=== PATIENT | female | born 1980 | race Caucasian/White ===

== ENCOUNTER 2020-11-23 08:42 | Outpatient (CLI) | payer OTHER ==
[2020-11-23 09:07] LABS: BILIRUBIN,URINE NEGATIVE (NEGATIVE); GLUCOSE, URINE (UA) NEGATIVE (NEGATIVE); KETONES,URINE (UA) NEGATIVE (NEGATIVE); LEUKOCYTE ESTERASE, URINE NEGATIVE (NEGATIVE); NITRITE,URINE NEGATIVE (NEGATIVE); OCCULT BLOOD,URINE NEGATIVE (NEGATIVE); PROTEIN,URINE NEGATIVE (NEGATIVE); UROBILINOGEN,URINE 0.2 (NORMAL) E.U./dL (NORMAL)
[2020-11-23 09:16] LABS: BACTERIA,URINE Few /HPF (None Seen); CLARITY,URINE CLEAR (CLEAR); RBC,URINE None Seen /HPF (0-5); SQUAMOUS EPITHELIAL CELL,UR RARE Squamous (<= Few); WBC,URINE 0-3 /HPF (0-5)
[2020-11-23 09:49] VITALS: BP 102/64
--- NOTE | 2020-11-23 13:20 | PROVIDER PROGRESS NOTE ---
- HPI Chief Complaint: Decreased movement (Patient presented due to decreased movement.) Current : Current EDU 03/10/21 Gestation 24 Weeks and 5 Days 2 Para 0 Vital Signs Temperature 98.2 F 11/23/20 09:38 Heart Rate 84 11/23/20 09:38 Respiratory Rate 18 11/23/20 09:38 Blood Pressure 102/64 11/23/20 09:38 O2 Saturation 99 11/23/20 09:38 Temperature 98.2 F 11/23/20 09:38 Heart Rate 84 11/23/20 09:38 Respiratory Rate 18 11/23/20 09:38 Blood Pressure 102/64 11/23/20 09:38 O2 Saturation 99 11/23/20 09:38 40 yo at 24 5/7 weeks with decreased movement. Patient is receiving Care in [place], [place]. Patient works in [employer] for the [employer]. Patient had a small amount of spotting this morning, but it has stopped. Patient denies any urinary symptoms. Patient felt regular movement for the past 2 weeks, but not this morning. Patient feeling good movement as soon as belts were placed. movement heard on monitor. O- Chest: clear to auscultation. Good breath sounds in all mcdonald. Heart: RRR without murmur or gallop. Abdomen: Soft, non-tender to palpation, gravid and fundus is appropriate for gestational age. Extremities: No edema, no calf tenderness. NST: FHT 140 with moderate variability and accelerations, no contractions. UA is without signs of infection. A-IUP 24 5/7 Decreased movement resolved. P-Keep her routine appointment at her OB office. - Procedures NST Procedure: NST Procedure Start Date 11/23/20 Start Time 09:00 Stop Time 09:20 Vibroacoustic Stimulation Used No
--- NOTE | 2020-11-23 13:28 | PROCEDURE REPORT ---
- HPI Current EDU 03/10/21 Gestation 24 Weeks and 5 Days 2 Para 0 Vital Signs Temperature 98.2 F 11/23/20 09:38 Heart Rate 84 11/23/20 09:38 Respiratory Rate 18 11/23/20 09:38 Blood Pressure 102/64 11/23/20 09:38 O2 Saturation 99 11/23/20 09:38 Temperature 98.2 F 11/23/20 09:38 Heart Rate 84 11/23/20 09:38 Respiratory Rate 18 11/23/20 09:38 Blood Pressure 102/64 11/23/20 09:38 O2 Saturation 99 11/23/20 09:38 - NST Procedure NST Procedure Start Date 11/23/20 Start Time 09:00 Stop Time 09:20 Vibroacoustic Stimulation Used No 40 yo at 24 5/7 with decreased movement. NST: FHT baseline of 140's with moderate variability and acceleration of 10X10. Reactive NST and Category I strip.
== END 2020-11-23 11:15 | disposition home or self-care (01) ==
LOC: WFO 08:42 → FBP 08:50 → WFO 11:15
PROVIDERS: ATTEND Obstetrics & Gynecology
DX: O36.8130 Decreased fetal movements, third trimester, not applicable or unspecified (principal); Z3A.24 24 weeks gestation of pregnancy
CPT/HCPCS: 59025; 81001; 87086; 99213; 99214

== ENCOUNTER 2022-02-17 19:57 | Emergency (ER) | payer OTHER ==
[2022-02-17 20:27] VITALS: BP 121/82
[2022-02-17] MEDS ORDERED: AMOX/CLAV 875 MG/125 MG TABLET PO STA (21:08)
--- NOTE | 2022-02-17 21:23 | ED Physician Documentation ---
PD HPI HEENT - Stated complaint Stated Complaint: SINUS PX - Chief complaint Chief Complaint: Heent - History obtained from History obtained from: Patient - Additional information Additional information: Patient is a 41-year-old female presenting for evaluation of head congestion for 8 days. She reports having significant nasal congestion and feeling bilateral maxillary sinus congestion for the past 8 days with no improvement with ribi-hli-mcttjmp treatments. She has tried Mucinex, sinus rinses,Cold medication, Tylenol without any improvement. She reports having green nasal discharge.She denies sick contacts, fever, chest pain, difficulty breathing.Home COVID test has been negative. 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 - Present Medications Home Medications: Ambulatory Orders Medication Instructions Recorded Confirmed Amox/Clav 875/125 [Augmentin] 1 each PO Q12H #20 tablet 02/17/22 - Allergies Allergies/Adverse Reactions: Allergies Allergy/AdvReac Type Severity Reaction Status Date / Time No Known Drug Allergies Allergy Verified 02/17/22 20:26 - Social History Does the pt smoke?: No Smoking Status: Never smoker Does the pt drink ETOH?: No Does the pt have substance abuse?: No - Immunizations Immunizations are current?: Yes PD ED PE NORMAL - General General: Alert and oriented X 3, No acute distress, Well developed/nourished - HEENT HEENT: Atraumatic, Moist mucous membranes, Pharynx benign, Other (Tenderness over bilateral maxillary sinuses, no erythema or visible swelling) - Neck Neck: Supple, no meningeal sign - Cardiac Cardiac: RRR, No murmur - Respiratory Respiratory: No respiratory distress, Clear bilaterally - Derm Derm: Warm and dry - Neuro Neuro: Normal speech Results - Vitals Vitals: Vital Signs - 24 hr 02/17/22 20:23 Temperature 36.9 C Heart Rate 91 Respiratory 16 Rate Blood Pressure 121/82 H O2 Saturation 99 Oxygen O2 Source Room air PD MEDICAL DECISION MAKING - ED course ED course: Patient presenting for sinus Congestion, headache for 8 days. No red flag signs or symptoms in regards to her headache. She has taken home COVID test which are negative.Patient has tried multiple fsun-xpo-cunnjse medications without any improvement. Given duration of symptoms, discussed Trial of antibiotics which she is agreeable to. Patient has otherwise stable vital signs and clear lung sounds. She appears well-hydrated. No signs of facial cellulitis. Discussed concerning symptoms to return for. Departure - Departure Disposition: Home, Self Care Clinical Impression: Sinusitis Condition: Stable Instructions: ED Sinusitis Abx Tx Prescriptions: Amox/Clav 875/125 [Augmentin] 1 each PO Q12H #20 tablet Comments: As we discussed most sinus infections are caused by viruses. However given the duration of your symptoms you have elected to a trial of antibiotics. I sent the prescription to [facility] in [place].Please make sure to complete the course of antibiotics. If you have any new or worsening symptoms consider return to the ER or walk-in clinic for reevaluation. Discharge Date/Time: 02/17/22 21:47
== END 2022-02-17 21:47 | disposition home or self-care (01) ==
LOC: ED 19:57
DX: J32.9 Chronic sinusitis, unspecified (principal)
CPT/HCPCS: 99282; 99283; A9270

== ENCOUNTER 2022-02-19 11:34 | Emergency (ER) | payer OTHER ==
[2022-02-19 11:45] VITALS: BP 124/79
--- NOTE | 2022-02-19 12:20 | ED Physician Documentation ---
PD HPI URI - Stated complaint Stated Complaint: CONJESTION/COUGH - Chief complaint Chief Complaint: Heent - History obtained from History obtained from: Patient - History of Present Illness Timing - onset: How many days ago (10) Timing duration: Days (10) Timing details: Gradual onset Associated symptoms: Nasal congestion (green colored and thick from left nare mainly.), Sinus pain, Swollen nodes. No: Fever, Chills, Sore throat, Dry cough, NVD Contributing factors: No: Sick contact, Travel, Immunocompromised Similar symptoms before: Diagnosis (prior sinus infections.) Recently seen: Not recently seen Review of Systems Constitutional: denies: Fever, Chills Eyes: denies: Decreased vision Nose: reports: Rhinorrhea / runny nose, Congestion, Sinus pressure / pain Throat: denies: Sore throat Cardiac: denies: Chest pain / pressure Respiratory: denies: Cough GI: denies: Abdominal Pain, Nausea, Vomiting, Diarrhea Skin: denies: Rash, Lesions PD PAST MEDICAL HISTORY - Past Medical History Past Medical History: Yes Cardiovascular: None Respiratory: None Endocrine/Autoimmune: None - Past Surgical History 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 - Present Medications Home Medications: Ambulatory Orders Medication Instructions Recorded Confirmed Amox/Clav 875/125 [Augmentin] 1 each PO Q12H #20 tablet 02/17/22 Cetirizine [ZyrTEC] 10 mg PO BID #15 tablet 02/19/22 Fluticasone Propionate 2 spr NS BID 30 Days #1 ml 02/19/22 HYDROcod/ACETAM 5/325 [[place] 5/325] 1 ea PO Q6H PRN #12 tablet 02/19/22 SUMAtriptan [Imitrex] 25 mg PO ONCE PRN #9 tablet 02/19/22 dexAMETHasone [Decadron] 4 mg PO DAILY #5 tablet 02/19/22 - Allergies Allergies/Adverse Reactions: Allergies Allergy/AdvReac Type Severity Reaction Status Date / Time No Known Drug Allergies Allergy Verified 02/19/22 11:45 - Social History Does the pt smoke?: No Smoking Status: Never smoker Does the pt drink ETOH?: No Does the pt have substance abuse?: No - Immunizations Immunizations are current?: Yes PD ED PE NORMAL - Vitals Vital signs reviewed: Yes - General General: Alert and oriented X 3, No acute distress, Well developed/nourished - HEENT HEENT: Ears normal, Moist mucous membranes, Pharynx benign - Neck Neck: Supple, no meningeal sign, Other (left anterior adenopathy. ) - Cardiac Cardiac: RRR, No murmur - Respiratory Respiratory: Clear bilaterally - Abdomen Abdomen: Soft, Non tender - Derm Derm: Normal color, Warm and dry, No rash - Neuro Neuro: Alert and oriented X 3, No motor deficit, Normal speech Results - Vitals Vitals: Oxygen O2 Source Room air - Labs Labs: Laboratory Tests 02/19/22 12:10 Nasal Adenovirus (PCR) NOT DETECTED Nasal B. parapertussis DNA (PCR) NOT DETECTED Nasal Coronavir 229E PCR NOT DETECTED Nasal Coronavir HKU1 PCR NOT DETECTED Nasal Coronavir NL63 PCR NOT DETECTED Nasal Coronavir OC43 PCR NOT DETECTED Nasal Enterovir/Rhinovir PCR DETECTED A Nasal Influenza B PCR NOT DETECTED Nasal Influenza A PCR NOT DETECTED Nasal Parainfluen 1 PCR NOT DETECTED Nasal Parainfluen 2 PCR NOT DETECTED Nasal Parainfluen 3 PCR DETECTED A Nasal Parainfluen 4 PCR NOT DETECTED Nasal RSV (PCR) NOT DETECTED Nasal B.pertussis DNA PCR NOT DETECTED Nasal C.pneumoniae (PCR) NOT DETECTED Dano Human Metapneumo PCR NOT DETECTED Nasal M.pneumoniae (PCR) NOT DETECTED Nasal SARS-CoV-2 (PCR) NOT DETECTED Departure - Departure Disposition: 01 Home, Self Care Clinical Impression: Sinusitis, acute Qualifiers: Sinusitis location: maxillary Recurrence: recurrent Qualified Code(s): J01.01 - Acute recurrent maxillary sinusitis Condition: Stable Record reviewed to determine appropriate education?: Yes Instructions: ED Sinusitis Abx Tx Follow-Up: MACO MIRZA MD [Primary Care Provider] - Prescriptions: dexAMETHasone [Decadron] 4 mg PO DAILY #5 tablet Fluticasone Propionate 2 spr NS BID 30 Days #1 ml SUMAtriptan [Imitrex] 25 mg PO ONCE PRN #9 tablet PRN Reason: Migraine HYDROcod/ACETAM 5/325 [[place] 5/325] 1 ea PO Q6H PRN #12 tablet PRN Reason: Pain Cetirizine [ZyrTEC] 10 mg PO BID #15 tablet Comments: I would continue with your Augmentin antibiotic as its only been a day and a half. If this has a bacterial component, it would not really have had time to work well yet. Continue with the cleansing of the nasal passage as you have been doing. We can add a antihistamine to help with some of the congestion. We can add a steroid type medicine for inflammation, use the steroid nasal spray twice daily. I wrote a prescription to refill your sumatriptan to use for your headaches. Add Tylenol every 4-6 hours if needed for pain. Hydrocodone if needed for worse pain in the short-term. I wrote a work note for you for the next 3 to 5 days. I sent your prescriptions to [facility] pharmacy. My narcotic instructions I am prescribing a short course of narcotic pain medication for you. These are potentially dangerous and addictive medications that should be used carefully. These medications may constipate you. Take an ndte-cnw-[id number] stool softener such as docusate twice daily with plenty of water while taking these medications. If you go 24 hours without a bowel movement, take eaej-yms-ddqasjt MiraLAX, per package instructions. Do not drink or drive while taking these medications. If you received narcotic or sedating medications while in the emergency department do not drive for 24 hours. Store this medication in a safe, secure place and out of reach of children. It is a violation of federal law to give or sell this medication to another person or to use in a manner other than prescribed. The ED will not refill narcotic prescriptions, including prescriptions lost or stolen. You can dispose of unwanted medications at the [facility]'s office or at several pharmacies such as [facility]. Forms: Activity restrictions Discharge Date/Time: 02/19/22 12:53
[2022-02-19] MEDS ORDERED: CHERRY SYRUP 10 ML UDC PO ONE (12:38)
[2022-02-19] MEDS ORDERED: SUMAtriptan 25 MG TABLET PO STA (12:38)
[2022-02-19] MEDS ORDERED: DEXAMETHASONE 10 MG/ML VIAL PO STA (12:38)
[2022-02-19] MEDS ORDERED: ACETAMINOPHEN 325 MG TABLET PO STA (12:40)
[2022-02-19 13:13] LABS: CORONAVIRUS 229E-RESP PCR NOT DETECTED; CORONAVIRUS HKU1-RESP PCR NOT DETECTED; CORONAVIRUS NL63-RESP PCR NOT DETECTED
[2022-02-19 13:14] LABS: B. PARAPERTUSSIS- RESP PCR PAN NOT DETECTED; B. PERTUSSIS- RESP PCR PANEL NOT DETECTED; C. PNEUMONIAE- RESP PCR PANEL NOT DETECTED; CORONAVIRUS OC43-RESP PCR NOT DETECTED; HUMAN METAPNEUMOVIRUS NOT DETECTED; INFLUENZA A- RESP PCR PANEL NOT DETECTED; INFLUENZA B - RESP PCR PANEL NOT DETECTED; M. PNEUMONIAE- RESP PCR PANEL NOT DETECTED; PARAINFLUENZA VIRUS 1 NOT DETECTED; PARAINFLUENZA VIRUS 2 NOT DETECTED; PARAINFLUENZA VIRUS 3 DETECTED; PARAINFLUENZA VIRUS 4 NOT DETECTED; RHINOVIRUS/ENTEROVIRUS DETECTED; RSV- RESP PCR PANEL NOT DETECTED; SARS-CoV-2 -RESP PCR PANEL NOT DETECTED
== END 2022-02-19 12:53 | disposition home or self-care (01) ==
LOC: ED 11:34
DX: J01.01 Acute recurrent maxillary sinusitis (principal); Z20.822 Contact with and (suspected) exposure to COVID-19
CPT/HCPCS: 87633; 99282; 99284; A9270

== ENCOUNTER 2022-03-23 13:22 | Outpatient (CLI) | payer OTHER ==
--- NOTE | 2022-03-23 18:20 | MRI Report ---
PROCEDURE: MRI lumbar spine without contrast INDICATIONS: LOW BACK PAIN TECHNIQUE: Noncontrast sagittal T1 spin echo and T2 fast echo, sagittal STIR, axial T1 and T2 fast spin echo thr ough the lumbar spine. In cases with scoliosis, additional coronal T2 fast spin echo may be performe d. COMPARISON: None. FINDINGS: Image quality: Excellent. Alignment and Curvature: There is normal bony alignment. Bone Marrow: Marrow is of normal overall signal. No acute vertebral body compression fractures. Spinal Cord: Conus medullaris terminates at the 1 level. Visualized cord demonstrates normal signal and size. Paraspinous Soft Tissues: No paravertebral masses. T12-L1: Normal in appearance. L1-L2: Normal in appearance. L2-L3: Normal in appearance. L3-L4: Normal in appearance. L4-L5: Mild disc desiccation present. Mild circumferential disc bulge without central or foraminal stenosis L5-S1: Normal in appearance. IMPRESSION: Mild degenerative changes without central or foraminal stenosis Reviewed by: Justin King MD on 03/23/2022 5:19 PM [place] Approved by: Justin King MD on 03/23/2022 5:19 PM [place] Station ID: [id number]
== END 2022-03-23 13:23 | disposition home or self-care (01) ==
LOC: DI 13:22
DX: M51.36 Other intervertebral disc degeneration, lumbar region (principal)

== ENCOUNTER 2022-04-12 14:16 | Outpatient (CLI) | payer OTHER ==
--- NOTE | 2022-04-12 16:08 | MRI Report ---
PROCEDURE: CERVICAL SPINE WO INDICATIONS: CERVICAL RADICULOPATHY TECHNIQUE: Noncontrast sagittal T1 spin echo and T2 fast spin echo, sagittal STIR, foraminal oblique sagittal T2 fast spin echo, and axial gradient echo or T2 fast spin echo through the cervical spine. COMPARISON: None. FINDINGS: Image quality: Excellent. Alignment and Curvature: There is normal bony alignment. Bone Marrow: Marrow demonstrates normal overall signal. Spinal Cord: Visualized spinal cord has normal size and signal. No cerebellar tonsillar herniation. Regional Soft Tissues: Prevertebral and paraspinous soft tissues normal. C2-C3: No spinal canal or neural foraminal stenosis. C3-C4: No spinal canal or neural foraminal stenosis. C4-C5: No spinal canal or neural foraminal stenosis. C5-C6: Moderate bilateral neural foraminal narrowing due to facet and uncovertebral hypertrophy. Mil d spinal canal stenosis due to posterior disc osteophyte complex. C6-C7: No spinal canal or neural foraminal stenosis. C7-T1: Final canal or neural foraminal stenosis. IMPRESSION: Moderate bilateral neural foraminal narrowing at C5-C6. Correlate for any C6 radicular symptoms. Reviewed by: Iftikhar Serna MD on 04/12/2022 4:07 PM PST Approved by: Iftikhar Serna MD on 04/12/2022 4:07 PM PST Station ID: [id number]
== END 2022-04-12 14:17 | disposition home or self-care (01) ==
LOC: DI 14:16
PROVIDERS: ATTEND General Practice
DX: M47.812 Spondylosis without myelopathy or radiculopathy, cervical region (principal)

== ENCOUNTER 2022-06-22 13:02 | Outpatient (CLI) | payer OTHER ==
--- NOTE | 2022-06-22 13:40 | SLEEP CARE CONSULTATION ---
Information from patient questionnaire entered by Latha Prasad. I have reviewed and concur with the information entered by Latha Prasad. This document represents the service I personally performed and the decisions made by me, Merle Morin ARNP. History of Present Illness Service Date and Time: 06/22/2022 1302 Reason for Visit: New patient Chief Complaint: reports: Unrefreshed sleep, Snoring, Excessive daytime sleepiness, Fatigue, Frequent awakenings at night Date of Onset: 2YRS Usual bedtime: 0830PM Time it takes to fall asleep: 1HR, sometimes longer Snores at night: Yes Observed to quit breathing while asleep: No Sleeps alone due to snoring: Yes Number of times waking at night: 3 Reasons for waking at night: reports: Snoring, Bathroom. denies: Choking, Gasping for air Toss, Turn, or Twitch while sleeping: Yes Recalls having dreams: No Usually gets out of bed at: 5AM Feels refreshed in the morning: No Morning headache: Yes (3-4 days a week; may resolve on own or with TYLENOL) Sleepy or fatigued during the day: Yes Ever fallen asleep while driving: No Takes day naps: Yes (on weekends when her daughter naps) Dreams during day naps: No Prior sleep studies: No Additional HPI information: I had the pleasure of seeing SOHAN ALEXANDRA today regarding the possibility of her having a sleep disorder. Her current complaints are unrefreshed sleep, snoring, excessive daytime sleepiness, fatigue and frequent night awakenings. She was told that she is a loud snorer. She says she has a lauren on her phone that tells her she is sometimes at severe risk of sleep apnea. She does not normally wake up feeling rested and wakes up with "bad headaches". She has a history of migraines. She states she wakes up 2-3 times a night but does have a 15 month old child who gets her up at night. She states she is engaged to her fianc has sleep apnea. He has been encouraging her to get a sleep study because of her loud snoring. She states her mother does have sleep apnea and uses a Pap machine. She is going on terminal leave soon from the [employer] and will be moving out of the area. She is trying to take care of her health issues before she is fully from her position in the . 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 Patient is Single and lives in . Have you smoked in the past 12 months: No Years of smokin Quit date: 2020 Alcohol use: No Caffeine use: Yes Caffeine amount and frequency: 2CUPS DAILY Family History Family history of sleep disordered breathing: Yes Family Hx Sleep Apnea: Mother: Snoring, Sleep apnea - Treated, Sibling: Snoring, Grandparent: Snoring Allergies and Home Medications Known drug allergies: No Drug allergies reviewed: Yes Home medication list reviewed: Yes Allergy and home medication list: Allergies No Known Drug Allergies Allergy (Verified 06/21/22 13:02) Medications: Levothyroxine 137 mcg daily, with double dose on Saturday MVT Zyrtec (off brand) Review of Systems Weight gain over past 5 years: 35 Cardiovascular: denies: high blood pressure Respiratory: denies: shortness of breath Gastrointestinal: reports: nausea. denies: heartburn Neurological: reports: headaches. denies: head trauma Psychiatric: reports: anxiety, depression, claustrophobia. denies: Attention Deficit Hyperactivity, mood disorder Ear/Nose/Throat: reports: nasal congestion, sinus problems, nose bleeds, dry mouth/throat, hoarseness, tonsillectomy, wisdom teeth removed Endocrine: reports: sluggishness, too hot or cold, increased appetite Immunologic: reports: sneezing Physical Exam Vital signs obtained and entered by: LATHA Jimeenz MA Blood Pressure: 108/60 (LEFT ARM) Cuff size: regular Heart Rate: 64 O2 Saturation: 98 Height: 5 ft 3 in Weight: 200 lb 6.4 oz Body Mass Index: 35.4 BMI Classification: Obese Neck circumference: 16.5 Mouth and throat: narrow oropharynx Soft palate: long Hard palate: normal Uvula: normal Uvula visualization: 25% Mallampati Class III Tongue: enlarged in size with teeth fam on lateral edges Tonsils: absent bilaterally Neck: normal w/o lymphadenopathy or thyromegaly Heart: regular rate and rhythm Lungs: clear bilaterally Impression and Plan 1. Suspected Obstructive Sleep Apnea-Hypopnea Syndrome, as suggested by a history of loud and irregular snoring, morning headache, frequent awakening during the night, unrefreshed sleep, cognitive impairment, and excessive daytime sleepiness. Narrow oropharynx and obesity are common predisposing factors for obstructive sleep apnea-hypopnea syndrome. I recommend proceeding to polysomnography to confirm the diagnosis and to assess severity. If the patient has significant sleep disordered breathing, a manual CPAP titration study will also be performed to find the optimal treatment pressure. I informed the patient of what the sleep studies involve and after some discussion, obtained agreement to proceed. The pathophysiology of obstructive sleep apnea-hypopnea syndrome was discussed with the patient and health risks of cardiovascular and cerebrov ascular disease if not treated. Risks of drowsy driving discussed in detail and patient advised to avoid long distance driving and to pot puller at the first sign of drowsiness. Patient agreed to plan. * Schedule polysomnography * Avoid long distance driving or driving when feeling sleepy. * Avoid alcohol, sedative and muscle relaxant around bedtime. * Attempt to lose weight. * Review instructions provided by trained office staff on how to prepare for the sleep study. * Return for follow-up after sleep study completed. Counseling Topics: Weight loss health impact Visit Type: In Office Time Spent with Patient (minutes): 30 Provider Statement: I spent 100% of the Face to Face Visit with the patient with greater than 50% spent counseling the patient and coordination of care.
[2022-06-22 13:41] VITALS: BP 108/60
== END 2022-06-22 13:03 | disposition home or self-care (01) ==
LOC: SC 13:02
PROVIDERS: ATTEND Nurse Practitioner Family
DX: R06.83 Snoring (principal); G47.8 Other sleep disorders; R51.9 Headache, unspecified; G47.10 Hypersomnia, unspecified; R53.83 Other fatigue; F32.A Depression, unspecified; E66.9 Obesity, unspecified; Z68.35 Body mass index [BMI] 35.0-35.9, adult; Z87.891 Personal history of nicotine dependence
CPT/HCPCS: 99203; 99212

== ENCOUNTER 2022-07-10 20:46 | Outpatient (CLI) | payer OTHER | END 2022-07-10 20:47 | disposition home or self-care (01) | LOC: SC 20:46 | PROVIDERS: ATTEND Nurse Practitioner Family | DX: G47.33 Obstructive sleep apnea (adult) (pediatric) (principal) | CPT/HCPCS: 95810 ==

== ENCOUNTER 2022-07-20 13:55 | Outpatient (CLI) | payer OTHER ==
--- NOTE | 2022-07-20 14:02 | Sleep Patient Instructions ---
Sleep Center Visit Summary - Patient Visit Information Reason for Visit: Sleep study follow up - Patient Instructions Instructions Attached: CPAP Dc, CPAP Additional Instructions: You will be started on CPAP therapy with pressure setting at 4-15 cmH2O. Please call the office to set up your next follow up once you obtain your new APAP machine and we will check compliance and response to therapy at that time. You may call the office with any concerns about pressure feeling too low or too much for adjustment if needed. You should contact DME for any questions or concerns about masks or equipment. - Clinic Information Contact: [facility] [address] [place] [email or web address] T: [phone]
[2022-07-20 14:08] VITALS: BP 134/94
--- NOTE | 2022-07-20 14:08 | SLEEP CARE CONSULTATION ---
Information from patient questionnaire entered by Latha Prasad. I have reviewed and concur with the information entered by Latha Prasad. This document represents the service I personally performed and the decisions made by , Merle Morin ARNP. History of Present Illness Service Date and Time: 07/20/2022 1400 Initial [place] Sleepiness Scale score: 9 (06/21/22) Current [place] Sleepiness Scale score: 15 (07/20/22) Additional HPI information: SOHAN ALEXANDRA returns for follow up and results of the recently performed polysomnography. I explained the pathophysiology behind obstructive sleep apnea. We then spent quite a bit of time discussing different treatment options. For mild obstructive sleep apnea, surgery and oral appliance are alternatives to nasal CPAP therapy but in moderate or severe cases, nasal CPAP is the most effective and reliable treatment. Because apnea is primarily in supine position, then positional management therapy could be effective. Methods discussed such as positioning with pillows, using a T-shirt with tennis balls in the back or commercial products that have a pillow format on back to prevent supine sleep. I reviewed the impact of weight changes on sleep apnea and strongly recommended losing weight. After some discussion, the patient opted to go with the nasal CPAP therapy. Nasal autoCPAP set at 4-15 cmH20 will be ordered with rationale explained. A manual titration study will be ordered if unable to find optimal pressure with office adjustments. I explained how CPAP machine works and what to expect when using the machine. Using CPAP every night in order to get used to it was emphasized. Patient advised to put CPAP mask on before getting into bed so as not to fall asleep without CPAP. To assist acclimation to CPAP use, it could also be used for a short time during day while reading or watching TV. The patient was instructed to call the CPAP supplier to discuss any mechanical problem that may occur. If the mask given is uncomfortable or is difficult to keep on through the night even with adjustment, contact the CPAP supplier as many will replace with another mask style if notified before 30 days. If snoring or perceives is not getting enough air or too much air from the machine, notify this office. Patient does not drink alcohol. Patient was cautioned about risks of drowsy driving until sleepiness symptoms resolve. Patient denies drowsy driving. Sleep Study - Results Type of Sleep Study: Polysomnography (COMPLETED 07/10/22) Prior sleep studies: No Polysomnography/Home Sleep Study results: IMPRESSION: The quality of the study is good. The patient had slightly reduced sleep efficiency due to frequent awakenings during the night. The sleep architecture was abnormal for sleep fragmentation and reduced amount of time spent in REM sleep. Respiratory monitoring showed moderate obstructive sleep apnea-hypopnea (AHI = 28.7) associated with frequent arousals, oxyhemoglobin desaturation and mild hypoxia (felix oxygen saturation of 80%). The respiratory events occurred predominantly during supine sleep (supine AHI = 51.2; non-supine = 13.69). Snore was loud in intensity. There was no significant periodic leg movement of sleep. Cardiac rhythm was normal sinus rhythm without significant arrhythmia. No abnormal behavior (parasomnia) observed during the night. Allergies and Home Medications Known drug allergies: No Drug allergies reviewed: Yes Home medication list reviewed: Yes (no changes) Allergy and home medication list: Allergies No Known Drug Allergies Allergy (Verified 07/19/22 13:35) Review of Systems Review of systems same as previous: Yes (no changes) Physical Exam Vital signs obtained and entered by: LATHA Jimenez MA Blood Pressure: 134/94 (LEFT ARM) Cuff size: regular Heart Rate: 92 O2 Saturation: 95 Height: 5 ft 3 in Weight: 205 lb 6.4 oz Body Mass Index: 36.3 BMI Classification: Obese Impression and Plan 1. Obstructive Sleep Apnea-Hypopnea Syndrome, moderate, with lowest oxygen saturation of 80%. Obviously this is the cause of the patients symptoms of unrefreshed sleep, and excessive daytime sleepiness. Positive pressure therapy could benefit anxiety and depression. As mentioned above, the patient will be started on nasal autoCPAP therapy with pressure set at 4-15 cmH2O. A manual titration study will be completed if unable to find optimal treatment pressure with office adjustments. Compliance guidelines also reviewed. A copy of compliance guidelines will be given for reference at check out. Because the apnea is more severe supine, I instructed to avoid sleeping supine using pillow positioning until able to start CPAP use. 2. Hypoxemia, mild, with a felix oxygen saturation of 80% and 6.7 minutes spent under 90%. Her baseline oxygen saturation was normal with an average oxygen saturation of 94%. * Nasal auto CPAP therapy, pressure at 4-15 cm H2O. * Attempt to lose weight. * Avoid alcohol consumption near bedtime. * Avoid supine sleep until using CPAP. * The patient is again cautioned about driving until sleepiness completely resolves. * Return one month after CPAP obtained. I will assess response to therapy and compliance at that time. Counseling Topics: Weight loss health impact Visit Type: In Office Time Spent with Patient (minutes): 21 Provider Statement: I spent 100% of the Face to Face Visit with the patient with greater than 50% spent counseling the patient and coordination of care.
== END 2022-07-20 13:56 | disposition home or self-care (01) ==
LOC: SC 13:55
PROVIDERS: ATTEND Nurse Practitioner Family
DX: G47.33 Obstructive sleep apnea (adult) (pediatric) (principal); E66.9 Obesity, unspecified; Z68.36 Body mass index [BMI] 36.0-36.9, adult
CPT/HCPCS: 99212; 99213

== ENCOUNTER 2022-09-07 11:53 | Outpatient (CLI) | payer OTHER ==
--- NOTE | 2022-09-07 11:11 | SLEEP CARE CONSULTATION ---
Information from patient questionnaire entered by Ana Prasad. I have reviewed and concur with the information entered by Ana Prasad. This document represents the service I personally performed and the decisions made by , Merle Morin ARNP. History of Present Illness Service Date and Time: 09/07/2022 1100 Previous diagnosis: Moderate, Obstructive Sleep Apnea-Hypopnea Syndrome AHI: 28.7 (in 2022) Reason for follow up: first compliance Equipment type: CPAP (RESMED 11, s/u 07/2022) Equipment obtained from: Other ([facility]; [facility]) Mask style: Nasal (small cushion) Mask brand: Respironics (Dreamwear) Backup mask available: Yes (other mask) Last cushion change: 2 weeks Prior sleep studies: No Type of Sleep Study: Polysomnography (COMPLETED 07/10/22) HPI additional information: SOHAN ALEXANDRA was diagnosed to have moderate, AHI 28.7, obstructive sleep apnea- hypopnea syndrome and returns via video telehealth visit today for CPAP therapy first compliance follow-up. Sleep Study - Results Type of Sleep Study: Polysomnography (COMPLETED 07/10/22) Prior sleep studies: No CPAP Compliance Data - Data Reviewed with Patient Average duration of nightly device use: 5 HRS 25 MINS Compliance rate %: 97 (08/07/22-09/05/22; 30/30 days used) Current pressure setting (cmH2O): 4-15 (median 6.5, avg 10.2, max 12) Average residual AHI: 1.4 Central apnea: 0 Obstructive apnea: 0.5 Hypopnea: 0.8 LPM Subjective Patient concerns: denies: aerophagia, mask discomfort, air blowing in eyes, mask leak noise, condensation in mask/hose, nasal congestion, dry mouth, nose, throat, epistaxis Observed to snore while using device: No Current pressure setting perceived as: comfortable On therapy, patient: reports: sleeping better, awakening more refreshed, being more awake and alert during the day, more rested overall. denies: drowsiness while driving Initial [place] Sleepiness Scale score: 9 (06/21/22) Current [place] Sleepiness Scale score: 6 (09/07/22) Allergies and Home Medications Known drug allergies: No Drug allergies reviewed: Yes Home medication list reviewed: Yes (no changes) Allergy and home medication list: Allergies No Known Drug Allergies Allergy Review of Systems Review of systems same as previous: Yes (no changes) Physical Exam Vital signs obtained and entered by: ANA Jimenez MA Height: 5 ft 3 in (PER PT) Weight: 200 lb (PER PT) Body Mass Index: 35.4 BMI Classification: Obese Impression and Plan 1. Obstructive Sleep Apnea-Hypopnea Syndrome, moderate, with good treatment compliance and good apnea control. On CPAP therapy, the patient has better sleep quality and is more rested overall. Patient has significant improvement of their sleep apnea and is satisfied with current CPAP therapy. Patient is noticing a good difference in sleep and has worn it every night in last month. She is using a nasal cushion, Dreamwear, mask. She is moving but should be able to touch base again in about a month with pressure change I will do today. The patients pres sure will be changed to autoCPAP 8-12 cmH20 to reflect pressures being used. Patient advised to contact me if pressure change is uncomfortable so that it can be adjusted. Goals for apnea control discussed. Patient's apnea severity and rationale for treatment to reduce apnea, improve sleep quality and reduce cardiovascular and cerebrovascular events was reviewed. I also reviewed the benefit of consistent device use of CPAP for depression/anxiety. 2. Obesity, unspecified. Currently patients BMI is 35.4. Obesity increases the risk of apnea, CPAP pressure requirements and overall health risks especially cardiovascular and diabetes. Thus patient is advised to lose weight. * Change auto CPAP pressure to 8-12 cmH2O * Notify me if snoring with mask or feeling that the pressure is too much or too little * Attempt to lose weight * Call this office if any problems using CPAP * Return for follow up in 1-2 months, or sooner if concerns arise Counseling Topics: Spare mask, Weight loss health impact Visit Type: Telehealth Video Video Type: [employer] Patient Location: road trip Location of Provider: Office Patient agrees and consents to this telehealth visit type: Yes Patient agrees to have their insurance billed: Yes Time Spent with Patient (minutes): 17 Provider Statement: I spent 100% of the Telehealth Video Call with the patient with greater than 50% spent counseling the patient and coordination of care.
== END 2022-09-07 11:54 | disposition home or self-care (01) ==
LOC: SC 11:53
PROVIDERS: ATTEND Nurse Practitioner Family
DX: G47.33 Obstructive sleep apnea (adult) (pediatric) (principal); E66.9 Obesity, unspecified; Z68.35 Body mass index [BMI] 35.0-35.9, adult